=== PATIENT | female | born 1985 | race Two or more races ===

== ENCOUNTER 2020-03-03 13:02 | Observation (INO) | payer MEDICAID | END 2020-03-03 16:00 | disposition home or self-care (01) | LOC: LDRP 13:02 | PROVIDERS: ADMIT Specialist; ATTEND Specialist | DX: O9A.213 Injury, poisoning and certain other consequences of external causes complicating pregnancy, third trimester (principal); M54.5 Low back pain; Z3A.35 35 weeks gestation of pregnancy; V49.9XXA Car occupant (driver) (passenger) injured in unspecified traffic accident, initial encounter; Y93.89 Activity, other specified; Y92.89 Other specified places as the place of occurrence of the external cause | CPT/HCPCS: 59025; 76815; 81002; G0378 ==